=== PATIENT | male | born 1965 | race African-American/Black ===

== ENCOUNTER 2017-12-16 06:05 | Emergency (ER) | payer BC ==
[~2017-12-16] VITALS: Ht 167.6 cm; Wt 68.7 kg
[~2017-12-16 06:05] MED LIST: AMLODIPINE BES2.5 MG PO; BACLOFEN10 MG PO; FLEXERIL5 MG PO; MEDROL DOSEPAK4 MG PO; MOTRIN800 MG PO; ULTRAM50 MG PO
[2017-12-16 07:12] LABS: HEMATOCRIT 38.2 % (38.0-50.0); HEMOGLOBIN 13.2 G/DL (12.5-16.6); MCH 31.3 PG (29.0-34.0); MCHC 34.6 G/DL (30.0-36.0); MCV 90.5 FL (86-99); PLATELET COUNT 253 K/uL (156-360); RBC DIS.WIDTH-CV 12.5 % (11.8-14.6); RBC DIS.WIDTH-SD 41.6 % (39-53); RED BLOOD COUNT 4.22 M/uL (4.00-5.50); WHITE BLOOD COUNT 8.1 K/uL (4.1-10.2)
[2017-12-16 07:31] LABS: CHLORIDE 105 MEQ/L (99-109); POTASSIUM 4.3 MEQ/L (3.7-5.4); SODIUM 139 MEQ/L (136-147)
[2017-12-16 07:36] LABS: CREATININE 1.1 MG/DL (0.6-1.3); GFR ESTIMATE (CALCULATED) > 59 mL/min/ (58.99-99999); GLUCOSE 114 mg/dL (70-99); UREA NITROGEN (BUN) 12 mg/dL (9-23)
[2017-12-16 07:39] LABS: TROP-I INTERPRETATION NEGATIVE; TROPONIN-I 0.02 ng/mL (0.0-0.30)
[2017-12-16 09:50] LABS: TROP-I INTERPRETATION NEGATIVE; TROPONIN-I < 0.01 ng/mL (0.0-0.30)
[2017-12-16] MEDS ORDERED: PREDNISONE20 MG PO (10:09)
[2017-12-16] MEDS ORDERED: OMEPRAZOLE40 M1 PO (10:09)
[2017-12-16] MEDS ORDERED: VENTOLIN HFA18 GM IH (10:09)
[2017-12-16 10:34] VITALS: BP 114/72
== END 2017-12-16 10:34 | disposition home or self-care (01) ==
LOC: EME 06:05
PROVIDERS: Nurse Practitioner Family
DX: J20.9 Acute bronchitis, unspecified (principal); R07.89 Other chest pain; I10 Essential (primary) hypertension; F17.200 Nicotine dependence, unspecified, uncomplicated
CPT/HCPCS: 71046; 80048; 84484; 85027; 93005; 94640; 99281; 99285